=== PATIENT | male | born 1945 | race Two or more races ===

== ENCOUNTER 2019-02-10 16:09 | Emergency (ER) | payer OTHER ==
[~2019-02-10] VITALS: Ht 152.4 cm; Wt 88.5 kg
[~2019-02-10 16:09] MED LIST: AMLODIPINE BES2.5 MG; ATENOLOL100 MG; ECOTRIN81 MG; LISINOPRIL20 MG; METFORMIN HCL500 MG; SIMVASTATIN20 MG
== END 2019-02-10 21:15 | disposition home or self-care (01) ==
LOC: ER 16:09
DX: K29.60 Other gastritis without bleeding (principal)

== ENCOUNTER 2019-02-11 08:53 | Emergency (ER) | payer OTHER ==
[~2019-02-11] VITALS: Ht 167.6 cm; Wt 88.5 kg
== END 2019-02-11 15:46 | disposition home or self-care (01) ==
LOC: ER 08:53
DX: K29.70 Gastritis, unspecified, without bleeding (principal); R00.1 Bradycardia, unspecified

== ENCOUNTER 2019-08-11 15:19 | Inpatient (IN) | payer OTHER ==
[~2019-08-11] VITALS: Ht 167.6 cm; Wt 129.3 kg
[2019-08-29] MEDS ORDERED: DIVALPROEX SOD500 MG PO (09:29)
[2019-08-29] MEDS ORDERED: METOPROLOL TAR100 MG PO (09:29)
[2019-08-29] MEDS ORDERED: CITALOPRAM HBR40 MG (09:30)
[2019-08-29] MEDS ORDERED: RANITIDINE HCL300 MG PO (09:30)
[2019-08-29] MEDS ORDERED: IRBESARTAN150 MG PO (09:30)
[2019-08-29] MEDS ORDERED: PANTOPRAZOLE SO20 MG PO (09:30)
[2019-08-29] MEDS ORDERED: ATORVASTATIN CA20 MG PO (09:31)
[2019-09-29] MEDS ORDERED: INTESTINEX680 M1 PO (14:53)
[2019-09-29] MEDS ORDERED: SURFAK240 M1 PO (14:53)
[2019-09-29] MEDS ORDERED: Neurin-Sl Tablet Sl SL (14:53)
[2019-09-29] MEDS ORDERED: CARdura 2MG TABLET PO (14:53)
[2019-09-29] MEDS ORDERED: VITAMIN B-1100 MG PO (14:53)
[2019-09-29] MEDS ORDERED: LIPITOR20 MG PO (14:53)
[2019-09-29] MEDS ORDERED: FOLIC ACID1 MG PO (14:53)
[2019-09-29] MEDS ORDERED: SPIRONOLACTONE25 MG PO (14:53)
[2019-09-29] MEDS ORDERED: AMLODIPINE BESYL5 MG PO (14:53)
[2019-09-29] MEDS ORDERED: CARVEDILOL25 MG PO (14:53)
[2019-09-29] MEDS ORDERED: MULTIVITAMINS1 EAC4 PO (14:53)
[2019-09-29] MEDS ORDERED: ATACAND16 MG PO (14:53)
[2019-09-29] MEDS ORDERED: NEURONTIN600 MG PO (14:53)
[2019-09-29] MEDS ORDERED: DULCOLAX10 MG RECTAL (14:53)
[2019-09-29] MEDS ORDERED: VANCOMYCIN HCL125 MG PO (14:53)
[2019-09-29] MEDS ORDERED: CARAFATE1 GM PO (14:53)
== END 2019-09-29 21:19 | DRG 682 ==
LOC: ER 15:19 → SURH 22:15 → ICU 22:15 → MEDJ 09-09 19:12 → SURH 09-09 19:23 → ICU 09-09 19:24 → SURH 09-09 19:32 → ICU 09-09 20:14 → SURH 09-10 05:12
PROVIDERS: ADMIT Internal Medicine
PROC: BW40ZZZ Ultrasonography of Abdomen (ICD-10-PCS; 2019-08-11)
PROC: 8E0ZXY6 Isolation (ICD-10-PCS; 2019-08-11)
PROC: 4A12X4Z Monitoring of Cardiac Electrical Activity, External Approach (ICD-10-PCS; 2019-08-11)
PROC: B246ZZZ Ultrasonography of Right and Left Heart (ICD-10-PCS; principal; 2019-08-12)
PROC: B54DZZZ Ultrasonography of Bilateral Lower Extremity Veins (ICD-10-PCS; 2019-08-12)
PROC: B44HZZZ Ultrasonography of Bilateral Lower Extremity Arteries (ICD-10-PCS; 2019-08-12)
PROC: 0T9B70Z Drainage of Bladder with Drainage Device, Via Natural or Artificial Opening (ICD-10-PCS; 2019-08-12)
PROC: 4A033R1 Measurement of Arterial Saturation, Peripheral, Percutaneous Approach (ICD-10-PCS; 2019-08-12)
PROC: 0BH17EZ Insertion of Endotracheal Airway into Trachea, Via Natural or Artificial Opening (ICD-10-PCS; 2019-08-14)
PROC: 5A1945Z Respiratory Ventilation, 24-96 Consecutive Hours (ICD-10-PCS; 2019-08-14)
PROC: 30233R1 Transfusion of Nonautologous Platelets into Peripheral Vein, Percutaneous Approach (ICD-10-PCS; 2019-08-14)
PROC: 02HV33Z Insertion of Infusion Device into Superior Vena Cava, Percutaneous Approach (ICD-10-PCS; 2019-08-15)
PROC: 3E0436Z Introduction of Nutritional Substance into Central Vein, Percutaneous Approach (ICD-10-PCS; 2019-08-15)
PROC: 30243N1 Transfusion of Nonautologous Red Blood Cells into Central Vein, Percutaneous Approach (ICD-10-PCS; 2019-08-27)
PROC: 02HV33Z Insertion of Infusion Device into Superior Vena Cava, Percutaneous Approach (ICD-10-PCS; 2019-09-01)
PROC: BW21Y0Z Computerized Tomography (CT Scan) of Abdomen and Pelvis using Other Contrast, Unenhanced and Enhanced (ICD-10-PCS; 2019-09-15)
DX: N17.8 Other acute kidney failure (principal); I21.4 Non-ST elevation (NSTEMI) myocardial infarction; T80.211A Bloodstream infection due to central venous catheter, initial encounter; I50.23 Acute on chronic systolic (congestive) heart failure; K72.00 Acute and subacute hepatic failure without coma; J96.01 Acute respiratory failure with hypoxia; A41.52 Sepsis due to Pseudomonas; A41.1 Sepsis due to other specified staphylococcus; B37.7 Candidal sepsis; R65.21 Severe sepsis with septic shock; B37.1 Pulmonary candidiasis; J15.0 Pneumonia due to Klebsiella pneumoniae; J69.0 Pneumonitis due to inhalation of food and vomit; J96.02 Acute respiratory failure with hypercapnia; I13.0 Hypertensive heart and chronic kidney disease with heart failure and stage 1 through stage 4 chronic kidney disease, or unspecified chronic kidney disease; E87.1 Hypo-osmolality and hyponatremia; J98.11 Atelectasis; E87.2 Acidosis; B37.89 Other sites of candidiasis; T17.898A Other foreign object in other parts of respiratory tract causing other injury, initial encounter; G72.81 Critical illness myopathy; A27.89 Other forms of leptospirosis; E11.22 Type 2 diabetes mellitus with diabetic chronic kidney disease; D69.59 Other secondary thrombocytopenia; B96.5 Pseudomonas (aeruginosa) (mallei) (pseudomallei) as the cause of diseases classified elsewhere; B96.1 Klebsiella pneumoniae [K. pneumoniae] as the cause of diseases classified elsewhere; F43.23 Adjustment disorder with mixed anxiety and depressed mood; T50.8X5A Adverse effect of diagnostic agents, initial encounter; D63.1 Anemia in chronic kidney disease; I08.2 Rheumatic disorders of both aortic and tricuspid valves; E11.65 Type 2 diabetes mellitus with hyperglycemia; E11.40 Type 2 diabetes mellitus with diabetic neuropathy, unspecified; E86.0 Dehydration; N18.2 Chronic kidney disease, stage 2 (mild); K70.31 Alcoholic cirrhosis of liver with ascites; K57.30 Diverticulosis of large intestine without perforation or abscess without bleeding; K40.20 Bilateral inguinal hernia, without obstruction or gangrene, not specified as recurrent; K29.00 Acute gastritis without bleeding; K21.9 Gastro-esophageal reflux disease without esophagitis; F10.20 Alcohol dependence, uncomplicated; R31.0 Gross hematuria; Z79.4 Long term (current) use of insulin; Z99.81 Dependence on supplemental oxygen

== ENCOUNTER 2021-07-03 13:45 | Emergency (ER) | payer OTHER ==
[~2021-07-03] VITALS: Ht 167.6 cm; Wt 81.6 kg
[~2021-07-03 13:45] MED LIST changes: +AMLODIPINE BESYL5 MG PO; +ATACAND16 MG PO; +ATORVASTATIN CA20 MG PO; +CARAFATE1 GM PO; +CARVEDILOL25 MG PO; +CARdura 2MG TABLET PO; +CITALOPRAM HBR40 MG; +DIVALPROEX SOD500 MG PO; +DULCOLAX10 MG RECTAL; +FOLIC ACID1 MG PO; +INTESTINEX680 M1 PO; +IRBESARTAN150 MG PO; +LIPITOR20 MG PO; +METOPROLOL TAR100 MG PO; +MULTIVITAMINS1 EAC4 PO; +NEURONTIN600 MG PO; +Neurin-Sl Tablet Sl SL; +PANTOPRAZOLE SO20 MG PO; +RANITIDINE HCL300 MG PO; +SPIRONOLACTONE25 MG PO; +SURFAK240 M1 PO; +VANCOMYCIN HCL125 MG PO; +VITAMIN B-1100 MG PO
[2021-07-03] MEDS ORDERED: PEPCID AC20 MG PO ×2 (13:56→20:11)
[2021-07-03] MEDS ORDERED: COZAAR100 MG PO (13:57)
[2021-07-03] MEDS ORDERED: DICY20TA PO (20:11)
[2021-07-03] MEDS ORDERED: METRONIDAZOLE500 MG PO (20:11)
[2021-07-03] MEDS ORDERED: CIPRO500 MG PO (20:11)
== END 2021-07-03 21:34 | disposition home or self-care (01) ==
LOC: ER 13:45
DX: R10.12 Left upper quadrant pain (principal); R42 Dizziness and giddiness